=== PATIENT | male | born 1945 | race Caucasian/White ===

== ENCOUNTER 2021-01-10 18:32 | Emergency (ER) | payer MEDICARE, OTHER ==
[~2021-01-10 18:32] MED LIST: PAIN PUMP SC; PAXIL40 MG PO; PRINIVIL10 MG PO; ZOFRAN4 MG PO
[2021-01-10 21:47] LABS: HEMOGLOBIN 11.3 gm/dl (14.0-17.5); RED BLOOD COUNT 3.74 M/UL (4.20-5.50); WHITE BLOOD COUNT 9.7 K/UL (4.5-11.0)
[2021-01-11] MEDS ORDERED: CEPHALEXIN500 MG PO (04:04)
== END 2021-01-11 04:25 | disposition home or self-care (01) ==
LOC: ER1 18:32
PROVIDERS: Physician Assistant
DX: L03.116 Cellulitis of left lower limb (principal); R79.1 Abnormal coagulation profile; N18.9 Chronic kidney disease, unspecified
CPT/HCPCS: 80053; 83735; 83880; 85025; 85379; 85652; 86140; 96372; 99283; J1650

== ENCOUNTER → 2021-01-15 | Outpatient (CLI) | payer MEDICARE, OTHER ==
[~2021-01-15] MED LIST changes: +CEPHALEXIN500 MG PO
== END ==
LOC: US 14:00
DX: M79.89 Other specified soft tissue disorders (principal); R79.89 Other specified abnormal findings of blood chemistry
CPT/HCPCS: 93971

== ENCOUNTER 2021-08-07 14:48 | Observation (INO) | payer MEDICARE, OTHER ==
[~2021-08-07] VITALS: Ht 172.7 cm; Wt 87.6 kg
[2021-08-07 15:46] LABS: HEMOGLOBIN 10.3 gm/dl (14.0-17.5); RED BLOOD COUNT 3.89 M/UL (4.20-5.50); WHITE BLOOD COUNT 7.9 K/UL (4.5-11.0)
[2021-08-07 16:09] LABS: BUN/CREATININE RATIO 13 (0-10)
[2021-08-07] MEDS ORDERED: FLOMAX 0.4 MG0.4 MG PO (19:11)
[2021-08-07] MEDS ORDERED: ELIQUIS5 MG PO (19:11)
[2021-08-07] MEDS ORDERED: FAMOTIDINE40 MG PO (19:12)
[2021-08-07] MEDS ORDERED: FINASTERIDE5 MG PO (19:12)
[2021-08-07] MEDS ORDERED: FOLIC ACID 1 MG1 MG PO (19:13)
[2021-08-07] MEDS ORDERED: REMERON 15 MG T15 MG PO (19:13)
[2021-08-07] MEDS ORDERED: DOCUSATE SODIU100 MG PO (19:14)
[2021-08-07] MEDS ORDERED: ARICEPT10 MG PO (19:14)
[2021-08-07] MEDS ORDERED: VITAMIN D250 MCG PO (19:15)
[2021-08-08 03:06] LABS: HEMOGLOBIN 10.2 gm/dl (14.0-17.5); RED BLOOD COUNT 3.78 M/UL (4.20-5.50); WHITE BLOOD COUNT 7.6 K/UL (4.5-11.0)
[2021-08-08 04:08] LABS: BUN/CREATININE RATIO 14 (0-10)
[2021-08-09 11:11] LABS: HEMOGLOBIN 9.7 gm/dl (14.0-17.5); RED BLOOD COUNT 3.59 M/UL (4.20-5.50); WHITE BLOOD COUNT 8.5 K/UL (4.5-11.0)
[2021-08-09] MEDS ORDERED: ELIQUIS 5 MG TAB5 MG PO (12:55)
[2021-08-09] MEDS ORDERED: LOPRESSOR 25 MG25 MG PO (12:55)
[2021-08-09] MEDS ORDERED: CEFUROXIME250 MG PO (13:08)
== END 2021-08-09 15:47 | disposition home or self-care (01) ==
LOC: ER1 14:48 → CDU 18:40 → PROG CARE 18:40
PROVIDERS: Physician Assistant; Student in an Organized Health Care Education/Training Program; ADMIT Internal Medicine
DX: R00.0 Tachycardia, unspecified (principal); I12.9 Hypertensive chronic kidney disease with stage 1 through stage 4 chronic kidney disease, or unspecified chronic kidney disease; N18.30 Chronic kidney disease, stage 3 unspecified; D63.1 Anemia in chronic kidney disease; N40.0 Benign prostatic hyperplasia without lower urinary tract symptoms; F03.90 Unspecified dementia, unspecified severity, without behavioral disturbance, psychotic disturbance, mood disturbance, and anxiety; L89.109 Pressure ulcer of unspecified part of back, unspecified stage; M54.50 Low back pain, unspecified; G89.29 Other chronic pain; Z86.718 Personal history of other venous thrombosis and embolism; Z88.8 Allergy status to other drugs, medicaments and biological substances; Z79.01 Long term (current) use of anticoagulants; Z79.899 Other long term (current) drug therapy; Z20.822 Contact with and (suspected) exposure to COVID-19
CPT/HCPCS: ECHO; 36415; 71045; 80048; 80053; 81001; 82550; 82553; 83735; 84439; 84443; 84484; 85025; 87077; 87086; 87186; 93005; 93306; 96365; 97116; 97162; 97166; 99285; G0378; J0696; U0002

== ENCOUNTER 2021-12-17 19:18 | Inpatient (IN) | payer MEDICARE, OTHER ==
[~2021-12-17] VITALS: Ht 172.7 cm; Wt 85.7 kg
[~2021-12-17 19:18] MED LIST changes: +ARICEPT10 MG PO; +CEFUROXIME250 MG PO; +DOCUSATE SODIU100 MG PO; +ELIQUIS 5 MG TAB5 MG PO; +ELIQUIS5 MG PO; +FAMOTIDINE40 MG PO; +FINASTERIDE5 MG PO; +FLOMAX 0.4 MG0.4 MG PO; +FOLIC ACID 1 MG1 MG PO; +LOPRESSOR 25 MG25 MG PO; +REMERON 15 MG T15 MG PO; +VITAMIN D250 MCG PO
[2021-12-17 23:20] LABS: HEMOGLOBIN 11.4 gm/dl (14.0-17.5); WHITE BLOOD COUNT 15.8 K/UL (4.5-11.0)
[2021-12-18 06:43] LABS: HEMOGLOBIN 10.2 gm/dl (14.0-17.5); RED BLOOD COUNT 3.64 M/UL (4.20-5.50); WHITE BLOOD COUNT 12.1 K/UL (4.5-11.0)
[2021-12-19 06:34] LABS: HEMOGLOBIN 8.4 gm/dl (14.0-17.5); WHITE BLOOD COUNT 9.4 K/UL (4.5-11.0)
[2021-12-19 06:37] LABS: RED BLOOD COUNT 2.98 M/UL (4.20-5.50)
[2021-12-20 06:40] LABS: HEMOGLOBIN 8.6 gm/dl (14.0-17.5); RED BLOOD COUNT 3.05 M/UL (4.20-5.50); WHITE BLOOD COUNT 7.7 K/UL (4.5-11.0)
[2021-12-20 07:11] LABS: BUN/CREATININE RATIO 26 (0-10)
[2021-12-20] MEDS ORDERED: LEVOFLOXACIN500 MG PO (09:10)
--- NOTE | 2021-12-20 11:07 | NUR ---
REPORT CALLED TO [facility] AMANDEEP HERNANDEZ
--- NOTE | 2021-12-20 16:15 | NUR ---
TRANSPORT CALLED TO TAKE PT. DOWNSTAIRS, PT WAS INCONTINENT OF BOWEL. PT STATES HE DIDN'T KNOW HIS BOWELS MOVED. PT ALSO VERY FEEBLE AND WEAK AT THIS TIME, UNABLE TO GET UP ON HIS OWN. DR. TURNER CALLED AND STATES CANCEL DISCHARGE AND WILL LET [facility] SEE HIM TOMORROW.
[2021-12-21 07:05] LABS: HEMOGLOBIN 9.2 gm/dl (14.0-17.5); RED BLOOD COUNT 3.26 M/UL (4.20-5.50); WHITE BLOOD COUNT 6.5 K/UL (4.5-11.0)
[2021-12-21 07:13] LABS: BUN/CREATININE RATIO 24 (0-10)
[2021-12-22 06:33] LABS: HEMOGLOBIN 9.5 gm/dl (14.0-17.5); RED BLOOD COUNT 3.41 M/UL (4.20-5.50); WHITE BLOOD COUNT 7.6 K/UL (4.5-11.0)
[2021-12-22 06:54] LABS: BUN/CREATININE RATIO 26 (0-10)
[2021-12-23 06:04] LABS: HEMOGLOBIN 8.9 gm/dl (14.0-17.5); RED BLOOD COUNT 3.21 M/UL (4.20-5.50); WHITE BLOOD COUNT 8.6 K/UL (4.5-11.0)
[2021-12-24 06:28] LABS: HEMOGLOBIN 9.2 gm/dl (14.0-17.5); RED BLOOD COUNT 3.32 M/UL (4.20-5.50); WHITE BLOOD COUNT 8.6 K/UL (4.5-11.0)
[2021-12-24 06:41] LABS: BUN/CREATININE RATIO 23 (0-10)
[2021-12-25 04:33] LABS: HEMOGLOBIN 8.6 gm/dl (14.0-17.5); RED BLOOD COUNT 3.09 M/UL (4.20-5.50); WHITE BLOOD COUNT 8.7 K/UL (4.5-11.0)
[2021-12-25 05:07] LABS: BUN/CREATININE RATIO 31 (0-10)
[2021-12-31 02:38] LABS: HEMOGLOBIN 8.3 gm/dl (14.0-17.5); RED BLOOD COUNT 2.96 M/UL (4.20-5.50); WHITE BLOOD COUNT 11.6 K/UL (4.5-11.0)
[2022-01-01 07:21] LABS: BUN/CREATININE RATIO 29 (0-10)
[2022-01-01] MEDS ORDERED: LOPRESSOR 25 MG25 MG PO (10:10)
--- NOTE | 2022-01-01 16:00 | NUR ---
CALLED REPORT TO INDIRA AT [facility] AT 1600 AT [phone]
== END 2022-01-01 15:28 | disposition home health service (06) | DRG 699 ==
LOC: ER1 19:18 → CDU 22:59 → M/S 22:59
PROVIDERS: Emergency Medicine; Internal Medicine; Physician Assistant; ADMIT Internal Medicine
DX: T83.511A Infection and inflammatory reaction due to indwelling urethral catheter, initial encounter (principal); N13.6 Pyonephrosis; N17.9 Acute kidney failure, unspecified; Z16.24 Resistance to multiple antibiotics; Z20.822 Contact with and (suspected) exposure to COVID-19; B96.4 Proteus (mirabilis) (morganii) as the cause of diseases classified elsewhere; I12.9 Hypertensive chronic kidney disease with stage 1 through stage 4 chronic kidney disease, or unspecified chronic kidney disease; N18.2 Chronic kidney disease, stage 2 (mild); F03.90 Unspecified dementia, unspecified severity, without behavioral disturbance, psychotic disturbance, mood disturbance, and anxiety; M54.9 Dorsalgia, unspecified; N40.1 Benign prostatic hyperplasia with lower urinary tract symptoms; R33.8 Other retention of urine; N31.9 Neuromuscular dysfunction of bladder, unspecified; R26.9 Unspecified abnormalities of gait and mobility; G89.29 Other chronic pain; L89.322 Pressure ulcer of left buttock, stage 2; R53.81 Other malaise; T83.018A Breakdown (mechanical) of other urinary catheter, initial encounter; Y83.8 Other surgical procedures as the cause of abnormal reaction of the patient, or of later complication, without mention of misadventure at the time of the procedure; Z86.718 Personal history of other venous thrombosis and embolism; Z79.01 Long term (current) use of anticoagulants; Z98.890 Other specified postprocedural states; Z74.01 Bed confinement status
CPT/HCPCS: 36415; 80048; 80053; 81001; 82962; 83735; 83880; 84100; 85025; 85027; 85652; 86140; 87040; 87077; 87086; 87186; 94760; 96374; 96375; 96376; 97110; 97110-GP-CQ; 97162; 97166; 97530; 97530-GP-CQ; 99285; G0378; J2185; J2405; U0002